=== PATIENT | male | born 1975 | race African-American/Black ===

== ENCOUNTER 2023-10-09 21:37 | Emergency (ER) | payer OTHER ==
[2023-10-09 21:54] VITALS: BP 143/88; O2SAT 100
--- NOTE | 2023-10-09 22:00 | ED Physician Documentation ---
PD HPI HEENT - Stated complaint Stated Complaint: MOUTH PX - Chief complaint Chief Complaint: Heent - History obtained from History obtained from: Patient - Additional information Additional information: The patient comes to the emergency department chief complaint of dental pain that began yesterday and has just intensified throughout the day. It is located in his right maxillary area and he feels like he has a molar right in front of his wisdom tooth, he states. No swelling of his cheek or gingiva. No drainage. No laxity of the tooth, but he does note that whenever he puts pressure on the tooth, it really hurts to the point he cannot chew. No other complaints at this time. PD PAST MEDICAL HISTORY - Past Medical History Past Medical History: Yes Cardiovascular: Hypertension - Past Surgical History Past Surgical History: No - Present Medications Home Medications: Ambulatory Orders Medication Instructions Recorded Confirmed Amoxicillin 500 mg PO TID 7 Days #21 cap 10/09/23 HYDROcod/ACETAM 5/325 [[place] 5/325] 1 - 2 tablet PO Q6H PRN #20 tablet 10/09/23 Lisinopril [Zestril] 40 mg PO DAILY 10/09/23 10/09/23 NIFEdipine [Nifedipine ER] 60 mg PO DAILY 10/09/23 10/09/23 - Allergies Allergies/Adverse Reactions: Allergies Allergy/AdvReac Type Severity Reaction Status Date / Time No Known Drug Allergies Allergy Verified 10/09/23 21:48 - Social History Does the pt smoke?: No Smoking Status: Never smoker - POLST Patient has POLST: No PD ED PE NORMAL - Vitals Vital signs reviewed: Yes - General General: Alert and oriented X 3, No acute distress, Well developed/nourished - HEENT HEENT: Atraumatic, PERRL, EOMI, Moist mucous membranes, Other (Right maxillary second molar tender to palpation. No dental fracture, gingival edema or tenderness, or buccal edema or fluid collection. No trismus.) - Neck Neck: Supple, no meningeal sign - Respiratory Respiratory: No respiratory distress - Derm Derm: Normal color, Warm and dry, No rash - Extremities Extremities: No deformity - Neuro Neuro: Alert and oriented X 3 - Psych Psych: Normal mood, Normal affect Results - Vitals Vitals: Vital Signs - 24 hr 10/09/23 21:45 Temperature 36.9 C Heart Rate 71 Respiratory 18 Rate Blood Pressure 143/88 H O2 Saturation 100 Oxygen O2 Source Room air PD Medical Decision Making - ED course Complexity details: considered differential, d/w patient ED course: The patient was treated with first dose of antibiotics here in the emergency department. He was given a prepack for Vicodin and prescriptions for amoxicillin and Vicodin. We have discussed the need for follow-up with dental as soon as possible and he states he will call his dentist tomorrow. We have discussed the usual indications for return. Departure - Departure Disposition: 01 Home, Self Care Clinical Impression: Pain, dental Condition: Stable Instructions: ED Tooth Pain Prescriptions: Amoxicillin 500 mg PO TID 7 Days #21 cap HYDROcod/ACETAM 5/325 [[place] 5/325] 1 - 2 tablet PO Q6H PRN #20 tablet PRN Reason: Pain Comments: Your prescriptions have been electronically transmitted to the [facility] pharmacy in [place]. You have been given your first dose of antibiotics here in the emergency department, as well as a prepack of pain medicine to take overnight at home, as needed. You may take ibuprofen along with the pain medicine we have prescribed, but please do not take Tylenol with the pain medicine we gave you, as this medicine already contains some Tylenol. Please call your dentist office first thing in the morning to set up a follow-up appointment for definitive care of your tooth.
[2023-10-09] MEDS: HYDROcod/ACET 5/325 Prepack 4 PO STA (22:06)
[2023-10-09] MEDS: AMOXICILLIN 250 MG CAPSULE PO STA (22:06)
== END 2023-10-09 22:11 | disposition home or self-care (01) ==
LOC: ED 21:37
DX: K08.89 Other specified disorders of teeth and supporting structures (principal); I10 Essential (primary) hypertension; Z79.899 Other long term (current) drug therapy
CPT/HCPCS: 99282; 99283; A9270

== ENCOUNTER 2023-11-17 18:22 | Emergency (ER) | payer OTHER ==
[2023-11-17] MEDS: LIDOCAINE VISCOUS 2% 15 ML UDC MM STA (19:59)
--- NOTE | 2023-11-17 20:44 | ED Physician Documentation ---
History of Present Illness - Stated complaint Stated Complaint: MOUTH PX - Chief complaint Chief Complaint: Heent - History obtained from History obtained from: Patient - Additonal information Additional information: 48yM p/w area of irritation along lower anterior gumline X 1 day. denies injury to the area. he states he saw some white material coming out of it earlier but it has since cleared. denies fever, trismus, dental pain. PD PAST MEDICAL HISTORY - Past Medical History Past Medical History: Yes Cardiovascular: Hypertension - Past Surgical History Past Surgical History: No - Present Medications Home Medications: Ambulatory Orders Medication Instructions Recorded Confirmed Amoxicillin 500 mg PO TID 7 Days #21 cap 10/09/23 HYDROcod/ACETAM 5/325 [[place] 5/325] 1 - 2 tablet PO Q6H PRN #20 tablet 10/09/23 Lisinopril [Zestril] 40 mg PO DAILY 10/09/23 10/09/23 NIFEdipine [Nifedipine ER] 60 mg PO DAILY 10/09/23 10/09/23 - Allergies Allergies/Adverse Reactions: Allergies Allergy/AdvReac Type Severity Reaction Status Date / Time No Known Drug Allergies Allergy Verified 11/17/23 19:48 - Social History Does the pt smoke?: No Smoking Status: Never smoker Does the pt drink ETOH?: Yes ETOH Use: Wine, Beer, Liquor Does the pt have substance abuse?: No - Immunizations Immunizations are current?: Yes - POLST Patient has POLST: No PD ED PE NORMAL - Vitals Vital signs reviewed: Yes - General General: Alert and oriented X 3, No acute distress, Well developed/nourished - HEENT HEENT: Atraumatic, PERRL, EOMI, Moist mucous membranes, Pharynx benign, Dentition benign, Other (2mm area of ulceration/erythema along anterior lower gumline just beneath central lower incisors. no fluctuance or purulent discharge) Results - Vitals Vitals: Vital Signs - 24 hr 11/17/23 11/17/23 18:33 20:53 Temperature 36.6 C 36.9 C Heart Rate 76 73 Respiratory 18 16 Rate Blood Pressure 121/81 H 136/92 H O2 Saturation 98 100 Oxygen O2 Source Room air PD Medical Decision Making - ED course ED course: 48yM p/w small ulcer to gums, improving s/p viscous lidocaine application. no signs of infection. symptomatic care discussed. plan to f/u with dentist. return precautions given. Departure - Departure Disposition: 01 Home, Self Care Clinical Impression: Oral lesion Condition: Good Instructions: Lesions Oral Comments: You were seen in the emergency department for a sore spot on the gums. It does not look infected at this time. You can apply ora - gel available over the counter to the affected area as needed. Please follow-up with your dentist and return to the emergency department if you have any new or worsening symptoms or other concerns. Forms: PCP List Discharge Date/Time: 11/17/23 20:53
[2023-11-17 20:58] VITALS: BP 136/92; O2SAT 100
== END 2023-11-17 20:53 | disposition home or self-care (01) ==
LOC: ED 18:22
DX: K13.70 Unspecified lesions of oral mucosa (principal); I10 Essential (primary) hypertension
CPT/HCPCS: 99283